=== PATIENT | female | born 1950 | race Caucasian/White ===

== ENCOUNTER 2017-02-28 15:19 | Inpatient (IN) | payer MEDICARE ==
[~2017-02-28] VITALS: Ht 177.8 cm; Wt 93.6 kg
[2017-02-28] MEDS ORDERED: SODIUM CHLORIDE FLUSH 10ML SYR IVF ONE (16:00)
[2017-02-28] MEDS ORDERED: ASPIRIN 81 MG TABLET CHEW PO ONE (16:00)
[2017-02-28 16:01] LABS: HEMATOCRIT 43.4 % (34.6-47.8); HEMOGLOBIN 14.5 g/dL (11.7-16.4); WHITE BLOOD COUNT 6.8 x10^3/uL (3.4-10)
[2017-02-28 16:11] LABS: BLOOD UREA NITROGEN 12 mg/dL (7-18)
[2017-02-28 16:16] LABS: ASPARTATE AMINO TRANSFERASE 22 U/L (15-37)
[2017-02-28 16:21] LABS: IS PT STATUS REG ER OR PRE ER? YES
[2017-02-28] MEDS ORDERED: ASPIRIN 81 MG TABLET CHEW ONE (16:28)
[2017-02-28] MEDS ORDERED: PSYL0.4C PO (17:01)
[2017-02-28] MEDS ORDERED: ASPI-496 PO (17:01)
[2017-02-28] MEDS ORDERED: OMEP10CA4 PO (17:01)
[2017-02-28] MEDS ORDERED: THYR30TA PO (17:01)
[2017-02-28] MEDS ORDERED: OMNIPAQUE 350 MG/ML, 100ML BOTTLE ONE (18:33)
[2017-02-28] MEDS ORDERED: ENOXAPARIN 40 MG/0.4 ML SQ SCH (21:00)
[2017-02-28] MEDS ORDERED: ACETAMINOPHEN 325 MG TABLET PO PRN (21:00)
[2017-02-28] MEDS ORDERED: ENALAPRILAT 1.25 MG/ML, 2ML IVPush PRN (21:00)
[2017-02-28] MEDS ORDERED: ONDANSETRON 2MG/ML, 2ML IVPush PRN (21:00)
[2017-02-28 21:38] LABS: IS PT STATUS REG ER OR PRE ER? YES
[2017-02-28 22:28] VITALS: BP 147/86
[2017-03-01 00:54] VITALS: BP 119/79
[2017-03-01 03:04] LABS: IS PT STATUS REG ER OR PRE ER? NO
[2017-03-01 05:59] LABS: IS PT STATUS REG ER OR PRE ER? NO
[2017-03-01] MEDS ORDERED: THYROID 30 MG TABLET PO SCH (06:00)
[2017-03-01] MEDS ORDERED: ASPIRIN 325 MG TABLET EC PO SCH (06:00)
[2017-03-01] MEDS ORDERED: REGADENOSON 0.4 MG/5 ML SYRINGE ONE (08:53)
[2017-03-01 09:12] VITALS: BP 128/84
[2017-03-01] MEDS ORDERED: PNEUMOCOCCAL 23 VACCINE IM-VACC ONE (15:30)
[2017-03-01 15:45] VITALS: BP 136/90
[2017-03-01] MEDS ORDERED: ATOR20TA9 PO (15:53)
[2017-03-01] MEDS ORDERED: ATORVASTATIN 20 MG TABLET PO SCH (21:00)
== END 2017-03-01 17:36 | disposition home or self-care (01) | DRG 313 ==
LOC: ED 20:04 → EDIP 20:33 → 5SO 22:18
PROVIDERS: ADMIT Internal Medicine; ATTEND Family Medicine
DX: R07.89 Other chest pain (principal); E03.9 Hypothyroidism, unspecified; E78.5 Hyperlipidemia, unspecified; K21.9 Gastro-esophageal reflux disease without esophagitis; M47.814 Spondylosis without myelopathy or radiculopathy, thoracic region; Z79.82 Long term (current) use of aspirin; Z86.73 Personal history of transient ischemic attack (TIA), and cerebral infarction without residual deficits; Z88.8 Allergy status to other drugs, medicaments and biological substances; Z23 Encounter for immunization
CPT/HCPCS: 36415; 71010; 71275; 78452; 80053; 80061; 83880; 84443; 84484; 85025; 90732; 93005; 93017; 99285; J1650; J2785; Q9967; A9502; C9898